=== PATIENT | female | born 1960 | race Caucasian/White ===

== ENCOUNTER 2017-12-13 17:53 | Emergency (ER) | payer BC, MEDICAID ==
[~2017-12-13] VITALS: Ht 167.6 cm; Wt 49.9 kg
[~2017-12-13 17:53] MED LIST: IMETREX; MACROBID 100 M100 MG PO; METRONIDAZOLE500 MG PO; NORCO 10-325 T1 EACH PO; NORCO 5-325 TA1 EACH ORAL; PHENAZOPYRIDIN100 MG PO; PREVACID30 MG PO; VANCOMYCIN1 GM/2502 PO; VICODIN 5-5001 EACH PO; WELLBUTRIN SR100 MG ORAL; ZOFRAN4 MG ORAL
--- NOTE | 2017-12-13 18:26 | Emergency Room Report ---
History of Present Illness General Chief Complaint: Lower Extremity Injury Source: Patient Present Illness HPI 56-year-old female patient reports ER complaining of left foot pain status post one day. Reports that she was walking around barefoot when she kicked a chair last night. Reports pain in in her toes and foot. Reports pain with ambulation. Reports able to weight. Denies other acute symptoms. Denies any head or lost consciousness. [place] bleeding or lacerations. Reports swelling of foot. Allergies: Coded Allergies: PENICILLINS (Verified Adverse Reaction, Severe, Anaphylaxis, 04/25/12) METOCLOPRAMIDE HCL (Verified Adverse Reaction, Intermediate, 04/25/12) ANXIETY, JERKING OF LIMBS, NERVOUSNESS Patient History Past Medical History: see triage record Last Menstrual Period: NA Reviewed Nursing Documentation: PMH: Agreed; PSxH: Agreed Nursing Documentation-PMH Past Medical History: No History, Except For Hx Cardiac Problems: No Hx Hypertension: No Hx Asthma: No Hx COPD: No Hx Diabetes: No Hx Cancer: No Hx Gastrointestinal Problems: Yes - GERD, Chronic C-Diff,Chrons disease Hx Dialysis: No Hx Neurological Problems: Yes - migraines Hx Cerebrovascular Accident: No Hx Seizures: No Review of Systems All Other Systems: negative except mentioned in HPI Physical Exam Vital Signs Date Time Temp Pulse Resp B/P (MAP) Pulse Ox O2 Delivery O2 Flow Rate FiO2 12/13/17 18:10 98.2 79 16 117/75 95 Room Air 98.2 Sp02 EP Interpretation: reviewed, normal General Appearance: well appearing, no apparent distress, alert, GCS 15, non- toxic Head: normocephalic, atraumatic Eyes: bilateral eye normal inspection, bilateral eye PERRL Neck: full range of motion Respiratory: lungs clear, normal breath sounds, no rhonchi, no respiratory distress, no accessory muscle use, no wheezing, speaking full sentences Cardiovascular #1: regular rate, rhythm, no edema Cardiovascular #2: 2+ dorsalis pedis (R), 2+ dorsalis pedis (L) Musculoskeletal: back normal, digits/nails normal, gait/station normal, normal range of motion, no calf tenderness, swelling - dorsum of the foot or MTP, other - no subungual hematoma, NVI, no ecchymosis, tender - dorsum of foot over her MTP extending to toes 2 through 5, TTP over fourth toe Psychiatric: mood/affect normal Skin: no rash Medical Decision Making PA Attestation Dr. Copeland is my supervising Physician whom patient management has been discussed with. Diagnostic Impression: Primary Impression: Toe fracture ER Course Pt. presents to the ED c/o left foot pain Ddx considered but are not limited to fracture, sprain, strain, contusion, dislocation. Vital signs: are WNL, pt. is afebrile Ordered X-ray and pain medication. ER COURSE Provided with pain medication. An X-ray of the left foot shows fracture of proximal phalanx of fourth toe, nondisplaced per preliminary reading. Fourth toe of left foot manuela taped to third toe. Splint was applied to the left foot was checked afterwards by me showing good alignment and support with distal neurovascular functioning intact. Crutches provided. Patient instructed on RICE method: rest, ice, compression, elevation. Patient instructed to be WBAT Followup with primary care provider. Discuss referral to ortho/podiatry/pain management/PT as needed. Discuss further imaging with MRI/CT as needed. DISCHARGE: -Rx provided for Tylenol for pain symptoms. At this time pt. is stable for d/c to home. Patient is resting comfortably, in no acute distress, nontoxic appearing, talking without difficulty. Will provide printed patient care instructions, and any necessary prescriptions. Patient instructed to follow with primary care provider in 3 - 5 days and to request further follow-up as needed. Care plan and follow up instructions have been discussed with the patient prior to discharge. Take medications as directed. Patient questions asked and answered. Patient reports understanding and agreement to treatment plan. ER precautions given, patient instructed to return to ER immediately for any new or worsening of symptoms. - Please note that this Emergency Department Report was dictated using [employer] technology software, occasionally this can lead to erroneous entry secondary to interpretation by the dictation equipment. Other X-Ray Diagnostic Results Other X-Ray Diagnostic Results : X-Ray ordered: left foot # of Views/Limited Vs Complete: 3 View Indication: Pain EP Interpretation: Yes PA Xray: Interpretation reviewed, by supervising MD, and agrees with findings. Interpretation: no dislocation, no soft tissue swelling, other - fracture of proximal phalanx of fourth toe, nondisplaced Impression: Other - fracture PA Scribe Text Niranjan Cisneros PA-C Last Vital Signs Date Time Temp Pulse Resp B/P (MAP) Pulse Ox O2 Delivery O2 Flow Rate FiO2 12/13/17 18:10 98.2 79 16 117/75 95 Room Air 98.2 Disposition: HOME, SELF-CARE Condition: Stable Scripts Acetaminophen* (TYLENOL EXTRA STRENGTH*) 500 Mg Tablet 500 MG ORAL Q8H PRN for Prn Headache/Temp > 101, #30 TAB 0 Refills Prov: Stanislav Cisneros 12/13/17 Patient Instructions: Toe Fracture, [id number] Additional Instructions: Patient instructed to follow up with primary care provider and discuss further referral to orthopedics or podiatry as needed. Patient instructed on RICE method: rest, ice, compression, elevation. Patient instructed to WBAT. Take medications as directed. Patient questions asked and answered. ER precautions given, patient instructed to return to ER immediately for any new or worsening of symptoms. Stanislav Cisneros Dec 13, 2017 18:26
[2017-12-13] MEDS ORDERED: Acetaminophen 500mg (ES) tab ORAL ONE (18:30)
[2017-12-13] MEDS ORDERED: TYLENOL EXTRA500 MG ORAL (19:43)
[2017-12-13 19:49] VITALS: BP 117/75
--- NOTE | 2017-12-14 08:53 | Diagnostic Imaging Report ---
Indication: Pain and trauma Technique: 3 views left foot Comparison: none Findings: There is an oblique fracture of the fourth proximal phalanx, only evident on the oblique view. This is nondisplaced. No other acute fractures. No dislocations. Impression: Positive for nondisplaced fourth proximal phalangeal fracture This agrees with the preliminary interpretation reported by the emergency room physician in the electronic medical record
== END 2017-12-13 19:50 | disposition home or self-care (01) ==
LOC: EMR 18:30
DX: S92.512A Displaced fracture of proximal phalanx of left lesser toe(s), initial encounter for closed fracture (principal); W22.03XA Walked into furniture, initial encounter; Y92.009 Unspecified place in unspecified non-institutional (private) residence as the place of occurrence of the external cause; Z88.0 Allergy status to penicillin; Z88.8 Allergy status to other drugs, medicaments and biological substances
CPT/HCPCS: 99283